=== PATIENT | female | born 1930 | race African-American/Black ===

== ENCOUNTER 2022-02-28 03:09 | Emergency (ER) | payer MEDICARE ==
[2022-02-28] MEDS ORDERED: Ketorolac Tromethamine 30 MG/ML VIAL ONE (03:40)
[2022-02-28 04:29] LABS: Bilirubin Neg (Negative); Blood, Urine Negative (Negative); Clarity Cloudy (Clear); Glucose, Urine (Dipstick) Normal (Negative); Ketone, Urine Negative (Negative); Leukocyte Negative (Negative); Nitrite Negative (Negative); Protein, Urine (Dipstick) 15 mg/dl (Neg-Trace); Specific Gravity, Urine 1.025 (1.002-1.036); Urobilinogen Normal mg/dL (Less than 2)
[2022-02-28 04:34] LABS: #Eosinphils 0.2 10x3/uL (0.0-0.5); #Monocytes 0.5 10x3/uL (0.0-1.1); %Basophils 0.1 % (0.0-2.0); %Eosinophils 1.9 % (0.0-6.0); %Lymphocytes 14.7 % (18.0-47.0); %Monocytes 6.4 % (0.0-10.0); %Neutrophils 76.5 % (40.0-75.0); Hemoglobin 7.4 g/dL (12.0-15.5); Mean Corpuscular HGB CONC 27.7 g/dL (32.0-36.0); Mean Corpuscular Hemoglobin 19.9 pg (27.0-33.0); Mean Corpuscular Volume 71.8 fl (81.6-98.3); Mean Platelet Volume 9.6 fl (7.4-10.4); Platelet Count 419 10x3/uL (150-450); RBC Distribution Width 20.7 % (11.5-14.5); Red Blood Cell (RBC) Count 3.72 10x6/uL (3.90-5.03); White Blood Cell (WBC) Count 7.8 10x3/uL (3.5-10.5)
[2022-02-28 05:05] LABS: ALT (SGPT) 9 U/L (8-55); AST (SGOT) 15 U/L (5-34); Albumin 3.8 g/dL (3.4-4.8); Alkaline Phosphatase 95 U/L (40-110); Anion Gap 18 mmol/L (10-20); BUN (Urea Nitrogen) 20 mg/dL (9.8-20.1); Bilirubin, Total 0.7 mg/dL (0.2-1.2); Calc. Creatinine Clearance 0 mL/min (70-130); Calcium 9.7 mg/dL (7.8-10.44); Carbon Dioxide 21 mmol/L (23-31); Chloride 109 mmol/L (98-107); Globulin 3.4 g/dL (2.4-3.5); Glucose 111 mg/dL (83-110); Potassium 3.9 mmol/L (3.5-5.1); Protein, Total 7.2 g/dL (5.8-8.1); Sodium 144 mmol/L (136-145)
[2022-02-28] MEDS ORDERED: HYDROcodone/Acetaminophen 5/325 mg Tablet ONE (05:15)
[2022-02-28 06:29] LABS: Anisocytosis SLIGHT = 6-15 cells (100X) (0-5/hpf); Schistocytes SLIGHT = 2-5 cells (100X) (0-1/hpf)
[2022-02-28 06:30] LABS: Hypochromia MODERATE=16-30 cells (100X) (0-5/hpf); Microcytosis SLIGHT = 6-15 cells (100X) (0-5/hpf); Platelet Morphology Comment Appears Adequate
== END 2022-02-28 05:32 | disposition home or self-care (01) ==
LOC: CSHERS 03:09
DX: F03.90 Unspecified dementia, unspecified severity, without behavioral disturbance, psychotic disturbance, mood disturbance, and anxiety (principal); M17.12 Unilateral primary osteoarthritis, left knee; T14.8XXA Other injury of unspecified body region, initial encounter; W57.XXXA Bitten or stung by nonvenomous insect and other nonvenomous arthropods, initial encounter; I10 Essential (primary) hypertension; E78.5 Hyperlipidemia, unspecified; J44.9 Chronic obstructive pulmonary disease, unspecified
CPT/HCPCS: 36415; 51701; 70450; 80053; 81003; 83605; 84484; 85025; 87086; 93005; 96372; J1885

== ENCOUNTER 2022-06-16 20:17 | Inpatient (IN) | payer MEDICARE, BC ==
[2022-06-16 21:11] LABS: Bilirubin Neg (Negative); Blood, Urine 250 (Negative); Clarity Clear (Clear); Glucose, Urine (Dipstick) Normal (Negative); Ketone, Urine 5 mg/dL (Negative); Leukocyte 500 (Negative); Nitrite Negative (Negative); Protein, Urine (Dipstick) 30 mg/dl (Neg-Trace)
[2022-06-16 21:18] LABS: Bacteria/HPF 3+ HPF (None Seen); Squamous Epithelial 21-50 HPF (0-3); WBC/HPF Greater Than 50 HPF (0-3)
[2022-06-16 21:58] LABS: #Monocytes 0.6 10x3/uL (0.0-1.1); #Neutrophils 8.1 10x3/uL (1.5-8.4); %Basophils 0.1 % (0.0-2.0); %Eosinophils 0.1 % (0.0-6.0); %Lymphocytes 10.7 % (18.0-47.0); %Monocytes 5.6 % (0.0-10.0); %Neutrophils 82.3 % (40.0-75.0); Hemoglobin 7.9 g/dL (12.0-15.5); Mean Corpuscular HGB CONC 29.8 g/dL (32.0-36.0); Mean Corpuscular Hemoglobin 23.7 pg (27.0-33.0); Mean Corpuscular Volume 79.3 fl (81.6-98.3); Platelet Count 123 10x3/uL (150-450); RBC Distribution Width 24.4 % (11.5-14.5); Red Blood Cell (RBC) Count 3.34 10x6/uL (3.90-5.03); White Blood Cell (WBC) Count 9.9 10x3/uL (3.5-10.5)
[2022-06-16 22:01] LABS: ALT (SGPT) 19 U/L (8-55); AST (SGOT) 24 U/L (5-34); Albumin 3.2 g/dL (3.4-4.8); Alkaline Phosphatase 67 U/L (40-110); Anion Gap 23 mmol/L (10-20); BUN (Urea Nitrogen) 66 mg/dL (9.8-20.1); Bilirubin, Total 1.5 mg/dL (0.2-1.2); CK (CPK) 92 U/L (29-168); Calc. Creatinine Clearance 0 mL/min (70-130); Calcium 9.6 mg/dL (7.8-10.44); Carbon Dioxide 19 mmol/L (23-31); Chloride 110 mmol/L (98-107); Estimated GFR 11; Globulin 2.7 g/dL (2.4-3.5); Glucose 103 mg/dL (83-110); Lipase 29 U/L (8-78); Potassium 3.5 mmol/L (3.5-5.1); Protein, Total 5.9 g/dL (5.8-8.1); Sodium 148 mmol/L (136-145)
[2022-06-16] MEDS ORDERED: Cefepime 2 GM VIAL ONE (22:09)
[2022-06-16 22:31] LABS: CKMB 9.8 ng/mL (0-6.6)
[2022-06-16 22:36] LABS: SARS-CoV-2 NAA Rapid Test Not Detected (NotDetected)
[2022-06-16 22:48] LABS: Anisocytosis SLIGHT = 6-15 cells (100X) (0-5/hpf); Hypochromia MODERATE=16-30 cells (100X) (0-5/hpf); Microcytosis SLIGHT = 6-15 cells (100X) (0-5/hpf)
[2022-06-16] MEDS ORDERED: Aspirin Chewable 81 MG TAB ONE (23:09)
[2022-06-16] MEDS ORDERED: Acetaminophen 325 MG TAB PO PRN (23:19)
[2022-06-16 23:56] LABS: Iron 96 ug/dL (50-170); Iron Binding Capacity, Total 221 mcg/dL (265-497)
[2022-06-17 00:14] LABS: Ferritin 185.78 ng/mL (10-291); Thyroid Stimulating Hormone 1.2835 uIU/mL (0.35-4.94)
[2022-06-17 00:15] LABS: Syphilis Antibody Nonreactive (Nonreactive); Syphilis Antibody Index 0.05 S/CO (<1.00 Non-Reactive)
[2022-06-17 00:46] LABS: Lactic Acid 1.8 mmol/L (0.5-2.2)
[2022-06-17 01:02] LABS: Troponin I 0.318 ng/mL (< 0.028)
[2022-06-17] MEDS: Potassium Chloride 20 MEQ in Lactated Ringer's 1,000 ML IV SCH ×3 (03:10→23:02)
[2022-06-17 04:00] LABS: #Monocytes 0.6 10x3/uL (0.0-1.1); #Neutrophils 8.7 10x3/uL (1.5-8.4); %Basophils 0.2 % (0.0-2.0); %Eosinophils 0.2 % (0.0-6.0); %Lymphocytes 12.5 % (18.0-47.0); %Monocytes 5.2 % (0.0-10.0); Hemoglobin 7.6 g/dL (12.0-15.5); Mean Corpuscular Hemoglobin 23.9 pg (27.0-33.0); Mean Corpuscular Volume 79.6 fl (81.6-98.3); Platelet Count 121 10x3/uL (150-450); RBC Distribution Width 24.4 % (11.5-14.5); Red Blood Cell (RBC) Count 3.18 10x6/uL (3.90-5.03); White Blood Cell (WBC) Count 10.7 10x3/uL (3.5-10.5)
[2022-06-17 04:06] LABS: Anion Gap 20 mmol/L (10-20); BUN (Urea Nitrogen) 62 mg/dL (9.8-20.1); Calc. Creatinine Clearance 0 mL/min (70-130); Calcium 9.6 mg/dL (7.8-10.44); Carbon Dioxide 19 mmol/L (23-31); Chloride 110 mmol/L (98-107); Estimated GFR 11; Glucose 97 mg/dL (83-110); Potassium 3.3 mmol/L (3.5-5.1); Sodium 146 mmol/L (136-145)
[2022-06-17 04:15] LABS: Troponin I 0.317 ng/mL (< 0.028)
[2022-06-17] MEDS ORDERED: Potassium Chloride 20 MEQ in Premix Bag 1 BAG IVPB SCH (04:30)
[2022-06-17] MEDS ORDERED: Potassium Chloride 20 MEQ/100 ML PREMIX BAG ONE (05:23)
[2022-06-17] MEDS ORDERED: Heparin 5,000 UNITS/ML VIAL ONE ×2 (08:28→14:20)
[2022-06-17] MEDS ORDERED: Potassium Chloride 20 MEQ TAB PO SCH (09:00)
[2022-06-17] MEDS: Ciprofloxacin 0.3% Ophth Soln 2.5 ml Bottle EA EYE SCH ×4 (09:22→23:32)
[2022-06-17] MEDS: Aspirin 81 mg Enteric Coated Tablet PO SCH (09:22)
[2022-06-17] MEDS: Heparin 5,000 UNITS/ML VIAL SC SCH ×3 (09:22→22:00)
[2022-06-17 10:31] VITALS: BMI 28.2
[2022-06-17] MEDS: Cefepime 1 GM in Sodium Chloride 0.9% 100 ML IVPB SCH (23:05)
[2022-06-18] MEDS: Potassium Chloride 20 MEQ in Lactated Ringer's 1,000 ML IV SCH ×2 (03:13→10:38)
[2022-06-18 05:58] LABS: Hemoglobin 6.7 g/dL (12.0-15.5); Mean Corpuscular HGB CONC 29.8 g/dL (32.0-36.0); Mean Corpuscular Hemoglobin 24.2 pg (27.0-33.0); Mean Corpuscular Volume 81.2 fl (81.6-98.3); Platelet Count 84 10x3/uL (150-450); RBC Distribution Width 24.4 % (11.5-14.5); Red Blood Cell (RBC) Count 2.77 10x6/uL (3.90-5.03); White Blood Cell (WBC) Count 8.5 10x3/uL (3.5-10.5)
[2022-06-18 05:59] LABS: #Eosinphils 0.1 10x3/uL (0.0-0.5); #Monocytes 0.4 10x3/uL (0.0-1.1); #Neutrophils 6.8 10x3/uL (1.5-8.4); %Basophils 0.2 % (0.0-2.0); %Eosinophils 0.8 % (0.0-6.0); %Lymphocytes 14.2 % (18.0-47.0); %Monocytes 4.1 % (0.0-10.0); %Neutrophils 79.5 % (40.0-75.0)
[2022-06-18 06:11] LABS: ALT (SGPT) 19 U/L (8-55); AST (SGOT) 19 U/L (5-34); Albumin 2.7 g/dL (3.4-4.8); Alkaline Phosphatase 55 U/L (40-110); Anion Gap 16 mmol/L (10-20); BUN (Urea Nitrogen) 63 mg/dL (9.8-20.1); Bilirubin, Total 0.8 mg/dL (0.2-1.2); Calc. Creatinine Clearance 13 mL/min (70-130); Calcium 9.2 mg/dL (7.8-10.44); Carbon Dioxide 19 mmol/L (23-31); Chloride 115 mmol/L (98-107); Estimated GFR 12; Globulin 2.7 g/dL (2.4-3.5); Glucose 89 mg/dL (83-110); Magnesium 1.9 mg/dL (1.6-2.6); Phosphorus 2.1 mg/dL (2.3-4.7); Potassium 4.3 mmol/L (3.5-5.1); Protein, Total 5.4 g/dL (5.8-8.1); Sodium 146 mmol/L (136-145)
[2022-06-18] MEDS: Heparin 5,000 UNITS/ML VIAL SC SCH (10:38)
[2022-06-18] MEDS: Ciprofloxacin 0.3% Ophth Soln 2.5 ml Bottle EA EYE SCH ×5 (10:38→23:02)
[2022-06-18] MEDS: Aspirin 81 mg Enteric Coated Tablet PO SCH (10:38)
[2022-06-18] MEDS ORDERED: Lactated Ringer's 1,000 ML IV SCH (15:30)
[2022-06-18] MEDS ORDERED: Lactated Ringer's 500 ML IV SCH (18:15)
[2022-06-18] MEDS: Sodium Chloride 0.45% 1,000 ML IV SCH (18:38)
[2022-06-18 20:36] LABS: #Eosinphils 0.1 10x3/uL (0.0-0.5); #Monocytes 0.3 10x3/uL (0.0-1.1); #Neutrophils 5.5 10x3/uL (1.5-8.4); %Basophils 0.1 % (0.0-2.0); %Eosinophils 1.6 % (0.0-6.0); %Lymphocytes 15.5 % (18.0-47.0); %Monocytes 4.4 % (0.0-10.0); %Neutrophils 77.1 % (40.0-75.0); Hemoglobin 6.8 g/dL (12.0-15.5); Mean Corpuscular Hemoglobin 24.3 pg (27.0-33.0); Mean Corpuscular Volume 81.1 fl (81.6-98.3); Platelet Count 73 10x3/uL (150-450); RBC Distribution Width 24.2 % (11.5-14.5); White Blood Cell (WBC) Count 7.1 10x3/uL (3.5-10.5)
[2022-06-18 20:42] LABS: ALT (SGPT) 15 U/L (8-55); AST (SGOT) 16 U/L (5-34); Albumin 2.7 g/dL (3.4-4.8); Alkaline Phosphatase 54 U/L (40-110); Anion Gap 16 mmol/L (10-20); BUN (Urea Nitrogen) 61 mg/dL (9.8-20.1); Bilirubin, Total 0.8 mg/dL (0.2-1.2); Calc. Creatinine Clearance 15 mL/min (70-130); Calcium 9.2 mg/dL (7.8-10.44); Carbon Dioxide 18 mmol/L (23-31); Chloride 115 mmol/L (98-107); Estimated GFR 13; Globulin 2.7 g/dL (2.4-3.5); Glucose 79 mg/dL (83-110); Potassium 4.1 mmol/L (3.5-5.1); Protein, Total 5.4 g/dL (5.8-8.1); Sodium 145 mmol/L (136-145)
[2022-06-18] MEDS: Cefepime 1 GM in Sodium Chloride 0.9% 100 ML IVPB SCH (22:00)
[2022-06-19 00:11] LABS: Creatinine, Urine 131.14 mg/dL (47-110)
[2022-06-19] MEDS: Sodium Chloride 0.45% 1,000 ML IV SCH (01:19)
[2022-06-19 06:47] LABS: Anion Gap 16 mmol/L (10-20); BUN (Urea Nitrogen) 57 mg/dL (9.8-20.1); Calc. Creatinine Clearance 16 mL/min (70-130); Calcium 9.2 mg/dL (7.8-10.44); Carbon Dioxide 19 mmol/L (23-31); Chloride 116 mmol/L (98-107); Estimated GFR 15; Glucose 84 mg/dL (83-110); Potassium 4.2 mmol/L (3.5-5.1); Sodium 147 mmol/L (136-145)
[2022-06-19 08:57] LABS: #Eosinphils 0.1 10x3/uL (0.0-0.5); #Monocytes 0.4 10x3/uL (0.0-1.1); #Neutrophils 5.6 10x3/uL (1.5-8.4); %Basophils 0.4 % (0.0-2.0); %Eosinophils 1.2 % (0.0-6.0); %Lymphocytes 16.6 % (18.0-47.0); %Monocytes 5.2 % (0.0-10.0); %Neutrophils 74.7 % (40.0-75.0); Hemoglobin 9.5 g/dL (12.0-15.5); Mean Corpuscular HGB CONC 30.5 g/dL (32.0-36.0); Mean Corpuscular Hemoglobin 24.8 pg (27.0-33.0); Mean Corpuscular Volume 81.2 fl (81.6-98.3); Platelet Count 60 10x3/uL (150-450); Red Blood Cell (RBC) Count 3.83 10x6/uL (3.90-5.03); White Blood Cell (WBC) Count 7.5 10x3/uL (3.5-10.5)
[2022-06-19] MEDS: Aspirin 81 mg Enteric Coated Tablet PO SCH (09:00)
[2022-06-19] MEDS: Ciprofloxacin 0.3% Ophth Soln 2.5 ml Bottle EA EYE SCH ×3 (09:01→17:15)
[2022-06-19] MEDS: Lactated Ringer's 1,000 ML IV SCH ×2 (10:45→18:42)
[2022-06-19] MEDS: Cefepime 1 GM in Sodium Chloride 0.9% 100 ML IVPB SCH (21:25)
[2022-06-20] MEDS: Lactated Ringer's 1,000 ML IV SCH ×3 (00:08→22:44)
[2022-06-20] MEDS: Ciprofloxacin 0.3% Ophth Soln 2.5 ml Bottle EA EYE SCH ×5 (00:08→20:16)
[2022-06-20] MEDS: Aspirin 81 mg Enteric Coated Tablet PO SCH (09:57)
[2022-06-20 09:58] LABS: #Eosinphils 0.1 10x3/uL (0.0-0.5); #Monocytes 0.3 10x3/uL (0.0-1.1); %Basophils 0.4 % (0.0-2.0); %Eosinophils 1.7 % (0.0-6.0); %Lymphocytes 13.2 % (18.0-47.0); %Monocytes 3.4 % (0.0-10.0); %Neutrophils 79.6 % (40.0-75.0); Hemoglobin 9.2 g/dL (12.0-15.5); Mean Corpuscular HGB CONC 31.9 g/dL (32.0-36.0); Mean Corpuscular Hemoglobin 25.5 pg (27.0-33.0); Mean Corpuscular Volume 79.8 fl (81.6-98.3); Platelet Count 59 10x3/uL (150-450); RBC Distribution Width 22.6 % (11.5-14.5); Red Blood Cell (RBC) Count 3.61 10x6/uL (3.90-5.03); White Blood Cell (WBC) Count 7.6 10x3/uL (3.5-10.5)
[2022-06-20 10:05] LABS: Anion Gap 15 mmol/L (10-20); BUN (Urea Nitrogen) 50 mg/dL (9.8-20.1); Calc. Creatinine Clearance 23 mL/min (70-130); Calcium 9.3 mg/dL (7.8-10.44); Carbon Dioxide 18 mmol/L (23-31); Chloride 116 mmol/L (98-107); Estimated GFR 22; Glucose 88 mg/dL (83-110); Sodium 145 mmol/L (136-145)
[2022-06-20] MEDS ORDERED: FLU VACC QS2022-23(65YR UP)/PF 240 MCG/0.7 ML SYRINGE IM ONE (10:45)
[2022-06-20 14:37] LABS: Kappa Lambda Light Chain Ratio 1.05 (0.26-1.65); Kappa Light Chains 54.2 mg/L (3.3-19.4); Lambda Light Chain 51.4 mg/L (5.7-26.3)
[2022-06-20] MEDS ORDERED: Dextrose 5% in Water 500 ML IV SCH (16:00)
[2022-06-20] MEDS: Cefepime 1 GM in Sodium Chloride 0.9% 100 ML IVPB SCH (22:40)
[2022-06-21 05:51] LABS: Anion Gap 14 mmol/L (10-20); BUN (Urea Nitrogen) 46 mg/dL (9.8-20.1); Calc. Creatinine Clearance 24 mL/min (70-130); Calcium 9.4 mg/dL (7.8-10.44); Carbon Dioxide 20 mmol/L (23-31); Chloride 115 mmol/L (98-107); Estimated GFR 24; Glucose 95 mg/dL (83-110); Potassium 3.9 mmol/L (3.5-5.1); Sodium 145 mmol/L (136-145)
[2022-06-21 07:03] LABS: #Eosinphils 0.1 10x3/uL (0.0-0.5); #Monocytes 0.3 10x3/uL (0.0-1.1); #Neutrophils 5.7 10x3/uL (1.5-8.4); %Basophils 0.4 % (0.0-2.0); %Eosinophils 1.2 % (0.0-6.0); %Lymphocytes 14.7 % (18.0-47.0); %Monocytes 4.3 % (0.0-10.0); %Neutrophils 78.3 % (40.0-75.0); Hemoglobin 9.1 g/dL (12.0-15.5); Mean Corpuscular HGB CONC 31.4 g/dL (32.0-36.0); Mean Corpuscular Hemoglobin 25.3 pg (27.0-33.0); Mean Corpuscular Volume 80.8 fl (81.6-98.3); Platelet Count 34 10x3/uL (150-450); RBC Distribution Width 22.9 % (11.5-14.5); Red Blood Cell (RBC) Count 3.59 10x6/uL (3.90-5.03); White Blood Cell (WBC) Count 7.3 10x3/uL (3.5-10.5)
[2022-06-21 08:26] LABS: Platelet Morphology Comment Appears Decreased
[2022-06-21 08:27] LABS: Hypochromia SLIGHT = 6-15 cells (100X) (0-5/hpf); Macrocytosis SLIGHT = 6-15 cells (100X) (0-5/hpf); Microcytosis SLIGHT = 6-15 cells (100X) (0-5/hpf); Ovalocytes SLIGHT = 2-5 cells (100X) (0-1/hpf)
[2022-06-21] MEDS: Aspirin 81 mg Enteric Coated Tablet PO SCH (09:42)
[2022-06-21] MEDS: Ciprofloxacin 0.3% Ophth Soln 2.5 ml Bottle EA EYE SCH ×4 (10:03→20:09)
[2022-06-21] MEDS: Lactated Ringer's 1,000 ML IV SCH ×2 (12:41→20:04)
[2022-06-21 14:37] LABS: A/G Ratio 0.9 (0.7-1.7); Albumin 2.5 g/dL (2.9-4.4); Alpha 1 0.3 g/dL (0.0-0.4); Alpha 2 0.6 g/dL (0.4-1.0); Gamma 0.8 g/dL (0.4-1.8); Globulin, Total 2.7 g/dL (2.2-3.9); M-Spike Not Observed g/dL (Not Observed); Protein Electrophoresis Intrp Note: (.)
[2022-06-21 14:37] LABS: Albumin-Ur 34.1 % (.); Alpha 1 - Ur 3.6 % (.); Alpha 2 - Ur 13.9 % (.); Beta-Ur 22.7 % (.); Gamma-Ur 25.7 % (.); M-Spike,% Not Observed % (Not Observed); Protein, Urine 32.2 mg/dL (Not Estab.)
[2022-06-22] MEDS: Cefepime 1 GM in Sodium Chloride 0.9% 100 ML IVPB SCH (00:58)
[2022-06-22 05:02] LABS: Anion Gap 13 mmol/L (10-20); BUN (Urea Nitrogen) 42 mg/dL (9.8-20.1); Calc. Creatinine Clearance 28 mL/min (70-130); Calcium 9.1 mg/dL (7.8-10.44); Carbon Dioxide 21 mmol/L (23-31); Chloride 117 mmol/L (98-107); Estimated GFR 29; Glucose 91 mg/dL (83-110); Sodium 147 mmol/L (136-145)
[2022-06-22 05:57] LABS: #Eosinphils 0.2 10x3/uL (0.0-0.5); #Monocytes 0.3 10x3/uL (0.0-1.1); %Basophils 0.5 % (0.0-2.0); %Eosinophils 2.7 % (0.0-6.0); %Lymphocytes 16.9 % (18.0-47.0); %Monocytes 3.9 % (0.0-10.0); %Neutrophils 75.1 % (40.0-75.0); Hemoglobin 8.2 g/dL (12.0-15.5); Mean Corpuscular HGB CONC 30.5 g/dL (32.0-36.0); Mean Corpuscular Hemoglobin 24.9 pg (27.0-33.0); Mean Corpuscular Volume 81.8 fl (81.6-98.3); Platelet Count 20 10x3/uL (150-450); RBC Distribution Width 22.6 % (11.5-14.5); Red Blood Cell (RBC) Count 3.29 10x6/uL (3.90-5.03); White Blood Cell (WBC) Count 6.6 10x3/uL (3.5-10.5)
[2022-06-22] MEDS: Lactated Ringer's 1,000 ML IV SCH (06:25)
[2022-06-22] MEDS: Ciprofloxacin 0.3% Ophth Soln 2.5 ml Bottle EA EYE SCH (09:27)
[2022-06-22] MEDS: Aspirin 81 mg Enteric Coated Tablet PO SCH (09:27)
[2022-06-22] MEDS: Dextrose 5% in Water 1,000 ML IV SCH ×2 (09:27→19:42)
[2022-06-23 05:14] LABS: Anion Gap 10 mmol/L (10-20); BUN (Urea Nitrogen) 36 mg/dL (9.8-20.1); Calc. Creatinine Clearance 33 mL/min (70-130); Calcium 8.6 mg/dL (7.8-10.44); Carbon Dioxide 21 mmol/L (23-31); Chloride 112 mmol/L (98-107); Estimated GFR 35; Glucose 139 mg/dL (83-110); Potassium 3.3 mmol/L (3.5-5.1); Sodium 140 mmol/L (136-145)
[2022-06-23 06:01] LABS: #Eosinphils 0.2 10x3/uL (0.0-0.5); #Monocytes 0.3 10x3/uL (0.0-1.1); #Neutrophils 4.4 10x3/uL (1.5-8.4); %Basophils 0.3 % (0.0-2.0); %Eosinophils 3.4 % (0.0-6.0); %Lymphocytes 15.8 % (18.0-47.0); %Monocytes 4.8 % (0.0-10.0); %Neutrophils 75.2 % (40.0-75.0); Hemoglobin 7.9 g/dL (12.0-15.5); Mean Corpuscular HGB CONC 30.7 g/dL (32.0-36.0); Mean Corpuscular Hemoglobin 24.8 pg (27.0-33.0); Mean Corpuscular Volume 80.6 fl (81.6-98.3); Platelet Count 18 10x3/uL (150-450); RBC Distribution Width 22.5 % (11.5-14.5); Red Blood Cell (RBC) Count 3.19 10x6/uL (3.90-5.03); White Blood Cell (WBC) Count 5.8 10x3/uL (3.5-10.5)
[2022-06-23 06:24] LABS: Anisocytosis SLIGHT = 6-15 cells (100X) (0-5/hpf); Hypochromia SLIGHT = 6-15 cells (100X) (0-5/hpf); Microcytosis SLIGHT = 6-15 cells (100X) (0-5/hpf); Schistocytes SLIGHT = 2-5 cells (100X) (0-1/hpf)
[2022-06-23 06:25] LABS: Elliptocytes SLIGHT = 2-5 cells (100X) (0-1/hpf)
[2022-06-23] MEDS: Dextrose 5% in Water 1,000 ML IV SCH (06:30)
[2022-06-23] MEDS: Sodium Chloride 0.45% 1,000 ML IV SCH (10:51)
[2022-06-23] MEDS: Potassium Chloride 20 MEQ in Premix Bag 1 BAG IVPB SCH ×2 (10:51→11:46)
[2022-06-24 06:15] LABS: #Monocytes 0.2 10x3/uL (0.0-1.1); #Neutrophils 5.3 10x3/uL (1.5-8.4); %Basophils 0.2 % (0.0-2.0); %Eosinophils 0.6 % (0.0-6.0); %Monocytes 3.4 % (0.0-10.0); %Neutrophils 85.3 % (40.0-75.0); Hemoglobin 9.1 g/dL (12.0-15.5); Mean Corpuscular HGB CONC 31.5 g/dL (32.0-36.0); Mean Corpuscular Volume 79.4 fl (81.6-98.3); Platelet Count 6 10x3/uL (150-450); RBC Distribution Width 22.5 % (11.5-14.5); Red Blood Cell (RBC) Count 3.64 10x6/uL (3.90-5.03); White Blood Cell (WBC) Count 6.2 10x3/uL (3.5-10.5)
[2022-06-24 06:23] LABS: ALT (SGPT) 19 U/L (8-55); AST (SGOT) 16 U/L (5-34); Albumin 2.3 g/dL (3.4-4.8); Alkaline Phosphatase 58 U/L (40-110); Anion Gap 11 mmol/L (10-20); BUN (Urea Nitrogen) 33 mg/dL (9.8-20.1); Bilirubin, Total 0.8 mg/dL (0.2-1.2); Calc. Creatinine Clearance 41 mL/min (70-130); Calcium 8.5 mg/dL (7.8-10.44); Carbon Dioxide 20 mmol/L (23-31); Chloride 114 mmol/L (98-107); Estimated GFR 45; Globulin 2.3 g/dL (2.4-3.5); Glucose 106 mg/dL (83-110); Potassium 3.7 mmol/L (3.5-5.1); Protein, Total 4.6 g/dL (5.8-8.1); Sodium 141 mmol/L (136-145)
[2022-06-24 06:50] LABS: Ovalocytes SLIGHT = 2-5 cells (100X) (0-1/hpf); Platelet Morphology Comment Appears Decreased
[2022-06-24 06:51] LABS: Anisocytosis SLIGHT = 6-15 cells (100X) (0-5/hpf)
[2022-06-24] MEDS: Sodium Chloride 0.45% 1,000 ML IV SCH (10:03)
[2022-06-24] MEDS: Morphine 2 MG/ML VIAL SLOW IVP PRN (20:37)
[2022-06-24] MEDS: Lorazepam 2 MG/ML VIAL SLOW IVP PRN (23:36)
[2022-06-25] MEDS: Morphine 2 MG/ML VIAL SLOW IVP PRN ×3 (05:14→09:23)
[2022-06-25] MEDS: Lorazepam 2 MG/ML VIAL SLOW IVP PRN (05:23)
[2022-06-25] MEDS ORDERED: Morphine 2 MG/ML VIAL SLOW IVP SCH (05:45)
[2022-06-25] MEDS ORDERED: Morphine 2 MG/ML VIAL SLOW IVP PRN (06:38)
[2022-06-25] MEDS: Sodium Chloride 0.45% 1,000 ML IV SCH (08:09)
[2022-06-26 01:15] VITALS: BP 69/43; TEMP 97.6
[2022-06-26 15:13] LABS: Heparin-Induced Ab (HITA) 0.078 OD (0.000-0.400)
[2022-06-27] MEDS ORDERED: Ergocalciferol 1.25 MG(50,000 UNITS) CAP PO SCH (09:00)
== END 2022-06-25 18:21 | disposition expired | DRG 871 ==
LOC: CSHERS 20:17 → CSHERHOLD 06-17 → CSHTELE 06-17 19:41
PROVIDERS: ADMIT Family Medicine; ATTEND Internal Medicine
PROC: 3E03329 Introduction of Other Anti-infective into Peripheral Vein, Percutaneous Approach (ICD-10-PCS; 2022-06-17)
PROC: 30233N1 Transfusion of Nonautologous Red Blood Cells into Peripheral Vein, Percutaneous Approach (ICD-10-PCS; principal; 2022-06-18)
DX: A41.9 Sepsis, unspecified organism (principal); G92.8 Other toxic encephalopathy; I21.A1 Myocardial infarction type 2; N17.9 Acute kidney failure, unspecified; N30.00 Acute cystitis without hematuria; E87.20 Acidosis, unspecified; E87.0 Hyperosmolality and hypernatremia; I12.0 Hypertensive chronic kidney disease with stage 5 chronic kidney disease or end stage renal disease; N18.4 Chronic kidney disease, stage 4 (severe); N25.81 Secondary hyperparathyroidism of renal origin; Z51.5 Encounter for palliative care; Z66 Do not resuscitate; F03.90 Unspecified dementia, unspecified severity, without behavioral disturbance, psychotic disturbance, mood disturbance, and anxiety; E86.0 Dehydration; H10.022 Other mucopurulent conjunctivitis, left eye; J32.0 Chronic maxillary sinusitis; E78.5 Hyperlipidemia, unspecified; J44.9 Chronic obstructive pulmonary disease, unspecified; E87.6 Hypokalemia; D69.6 Thrombocytopenia, unspecified; E88.09 Other disorders of plasma-protein metabolism, not elsewhere classified; E87.8 Other disorders of electrolyte and fluid balance, not elsewhere classified; D63.1 Anemia in chronic kidney disease; R62.7 Adult failure to thrive; E55.9 Vitamin D deficiency, unspecified; Z20.822 Contact with and (suspected) exposure to COVID-19; Z88.0 Allergy status to penicillin; Z79.899 Other long term (current) drug therapy; Z98.890 Other specified postprocedural states; Z90.710 Acquired absence of both cervix and uterus; Z80.9 Family history of malignant neoplasm, unspecified
CPT/HCPCS: 36415; 36430; 70450; 71045; 76770; 80048; 80053; 81003; 81015; 82140; 82306; 82550; 82553; 82570; 82607; 82728; 83540; 83550; 83605; 83690; 83735; 83883; 83970; 84100; 84155; 84156; 84165; 84166; 84443; 84484; 85025; 86780; 86850; 86900; 86901; 86905; 86922; 87040; 87086; 93005; 93306; 96361; 96374; 97139; J0692; J1644; J2060; J2270; J3480; J3490; J7070; J7120; P9016; P9035; U0002